=== PATIENT | female | born 1960 | race Caucasian/White ===

== ENCOUNTER 2016-12-23 15:45 | Outpatient (CLI) | payer OTHER ==
--- NOTE | 2016-12-23 16:17 | History and Physical Report ---
History of Present Illness Date of examination: 12/23/16 Chief complaint: lt breast mass Medications and Allergies Allergies Allergy/AdvReac Type Severity Reaction Status Date / Time No Known Allergies Allergy Unverified 01/17/16 08:40
--- NOTE | 2016-12-23 16:19 | Procedure Note ---
Date of procedure: 12/23/16 Pre-op diagnosis: lt breast mass Post-op diagnosis: same Procedure: u/s guided bx Findings: solid tissue Anesthesia: local Surgeon: SPENCER VALDEZ Estimated blood loss: none Pathology: list (lt breast samples) Specimen disposition: to lab Condition: stable Disposition: same day
--- NOTE | 2016-12-23 16:30 | Mammography Report ---
Ultrasound-guided left breast biopsy, marker placement, left mammogram: The patient presents with a nodule in the inferior breast. The nodule is well-circumscribed and elongated measuring approximately 19 mm in greatest dimension. It has internal echoes with no obvious internal flow by color imaging. A lateral approach was utilized. The skin was cleansed and 1% lidocaine used for local anesthesia. A 13-gauge guide was introduced through which a 14-gauge disposable Bard biopsy spring-loaded gun was used to take multiple sections under ultrasound observation. A marker was placed under ultrasound guidance. The skin was bandaged with a waterseal. A 2 view followup mammogram confirm positioning of the marker. There is a small associated hematoma. No patient complication encountered. The patient was given verbal followup instructions.
== END 2016-12-23 15:46 | disposition home or self-care (01) ==
LOC: US 15:45
PROVIDERS: ATTEND Hospitalist
DX: N63 Unspecified lump in breast (principal)
CPT/HCPCS: 19083; 88305; G0206